=== PATIENT | female | born 1970 | race Caucasian/White ===

== ENCOUNTER 2020-04-06 05:33 | Emergency (ER) | payer OTHER, SELFPAY ==
[2020-04-06 05:40] VITALS: BP 135/72; PULSE 93; RESP 15; TEMP 36.8; O2SAT 98; BMI 36.5
--- NOTE | 2020-04-06 05:41 | ED.HA ---
HPI - Headache General Chief Complaint: Headache Stated Complaint: migraine Time Seen by Provider: 04/06/20 05:41 History of Present Illness HPI Narrative: 49-year-old woman with a history of migraine headaches presents with migraine headache. She states started approximately 3 hours prior to arrival was associated with her usual aura. Describes it as having a bit more nausea than usual and sleeping and Excedrin migraine, her usual management, is not working this time. She states she has tried triptans in the past but they frequently are not very effective for her. She also notes that she is allergic to Reglan as causes unpleasant twitching. She notes no recent fever, cough, chills, abdominal pain, diarrhea, rashes, new exposures or other findings that may have set off this current migraine. She describes no new neurologic symptoms notes slight blurred vision in the right eye where the aura is most noticeable. Related Data Allergies Allergy/AdvReac Type Severity Reaction Status Date / Time metoclopramide [From Reglan] Allergy twitchy Verified 04/06/20 05:45 Review of Systems Review of Systems Narrative: Pertinent positive and negative findings as per HPI Remainder of review of systems is otherwise unremarkable for Constitutional: Fevers, chills, weakness ENT: No sore throat, neck pain, ear pain CV: Chest pain, palpitations, dyspnea on exertion Respiratory: Cough, wheeze, dyspnea GI: Nausea, vomiting, diarrhea, change in bowel habits, black or bloody stools : Dysuria, hematuria, flank pain MS: Muscle weakness, numbness Skin: Rashes, nonhealing lesions Neuro: Syncope, dizziness, tingling Patient History Medical History Migraine (Acute) Social History Smoking Status: Never smoker Exam Narrative Exam Narrative: General: Healthy appearing, moderate distress secondary to headache. Able to give a complete and coherent history. Well-nourished well-developed HEENT: Moist mucous membranes, normal sclera with reactive pupils, Neck: supple Respiratory: Lungs are clear to auscultation, no wheezing no rales no rhonchi. Full and symmetrical air movement Cardiac: Regular rate and rhythm no murmurs no bruits Abdomen: Soft nontender good bowel tones, no flank pain Neurologic: Grossly neurologically intact with no obvious asymmetries or abnormalities Psych: Cooperative, appropriate insight and affect Initial Vital Signs Initial Vital Signs: Vital Signs Temperature 98.2 F 04/06/20 05:40 Pulse Rate 93 H 04/06/20 05:40 Respiratory Rate 15 04/06/20 05:40 Blood Pressure 135/72 04/06/20 05:40 Pulse Oximetry 98 04/06/20 05:40 Course Orders Ordered: Discontinued Medications Diphenhydramine HCl (Benadryl) 25 mg IV NOW ONE Stop: 04/06/20 05:46 Last Admin: 04/06/20 05:56 Dose: 25 mg Documented by: MICHELINE Diphenhydramine HCl (Benadryl) 25 mg IV NOW ONE Stop: 04/06/20 06:44 Last Admin: 04/06/20 06:49 Dose: 25 mg Documented by: MICHELINE Haloperidol (Haldol) 2 mg IV NOW ONE Stop: 04/06/20 06:44 Last Admin: 04/06/20 06:48 Dose: 2 mg Documented by: MICHELINE Ondansetron HCl 8 mg/ Sodium (Chloride) 54 mls @ 216 mls/hr IV NOW ONE Stop: 04/06/20 05:46 Last Admin: 04/06/20 05:56 Dose: Not Given Documented by: MICHELINE Sodium Chloride (Normal Saline 0.9%) 1,000 mls @ 1,000 mls/hr IV BOLUS ONE Stop: 04/06/20 06:44 Last Admin: 04/06/20 05:56 Dose: 1,000 mls/hr Documented by: MICHELINE Sodium Chloride (Normal Saline 0.9%) 1,000 mls @ 1,000 mls/hr IV BOLUS ONE Stop: 04/06/20 06:45 Last Admin: 04/06/20 05:56 Dose: Not Given Documented by: MICHELINE Ondansetron HCl 8 mg/ Sodium (Chloride) 54 mls @ 216 mls/hr IV NOW ONE Stop: 04/06/20 05:50 Last Admin: 04/06/20 05:57 Dose: Not Given Documented by: MICHELINE Ketorolac Tromethamine (Toradol) 15 mg IV NOW ONE Stop: 04/06/20 05:46 Last Admin: 04/06/20 05:54 Dose: 15 mg Documented by: MICHELINE Ondansetron HCl (Zofran) 8 mg IV NOW ONE Stop: 04/06/20 05:52 Last Admin: 04/06/20 05:55 Dose: 8 mg Documented by: MICHELINE Vital Signs Vital signs: Vital Signs - 8 hr 04/06/20 05:40 Temperature 98.2 F Pulse Rate 93 H Respiratory Rate 15 Blood Pressure 135/72 Pulse Oximetry 98 MDM - Headache Medical Records Attestation: I reviewed the patient's medical records. [facility] Narrative Medical decision making narrative: 49-year-old woman with a history of migraine presents with severe migraine. She states that she typically does not need to go to the hospital with these and believes last time that she needed to was approximately 3 years ago. Headache was moderately improved with saline, Zofran, Toradol, Benadryl. She was still nauseated after this so additional benadryl and IV haldol were added to the regimin. There is no evidence of infection, acute neurologic injury or intracranial bleed. She is safe for home discharge Discharge Plan Departure Patient Disposition: Home Clinical Impression: Migraine Instructions: DI for Migraine Activity Restrictions/Additional Instructions: Thank you for coming in today I am sorry that your migraine was so severe today. In the emergency room you received 1 L of saline, Toradol, Benadryl and Zofran for nausea. Then additional benadryl and haldol for continued pain and nausea. I hope that you are able to get some sleep and wake up feeling refreshed If you have a change in symptoms, numbness or tingling or dysfunction in 1 of your arms or legs, developed fevers or severe neck pain it would be very appropriate to return to the emergency room for further evaluation Referrals: Dallas Minaya MD [Primary Care Provider] -
[2020-04-06] MEDS: KETOROLAC 60 MG/2 ML VIAL 15 MG IV (05:54)
[2020-04-06] MEDS: ONDANSETRON 4 MG/2 ML INJ 8 MG IV (05:55)
[2020-04-06] MEDS: SODIUM CHLORIDE 0.9% 1,000 ML 1000 ML IV (05:56)
[2020-04-06] MEDS: diphenhydrAMINE 50 MG/ML VIAL 25 MG IV ×2 (05:56→06:49)
[2020-04-06] MEDS: HALOPERIDOL 5 MG/ML VIAL 2 MG IV (06:48)
[2020-04-06 07:26] VITALS: BP 111/58; PULSE 78; RESP 15; O2SAT 98
== END 2020-04-06 07:28 | disposition home or self-care (01) ==
PROVIDERS: Emergency Provider Emergency Medicine; PCP Internal Medicine
DX: G43.909 Migraine, unspecified, not intractable, without status migrainosus (principal)
CPT/HCPCS: 96361; 96374; 96375; 96376; 99283; 99284; J1200; J1630; J1885; J2405

== ENCOUNTER 2021-11-28 19:14 | Emergency (ER) | payer OTHER, MEDICAID, SELFPAY ==
[2021-11-28 19:17] VITALS: BP 128/71; PULSE 102; RESP 16; TEMP 36.6; O2SAT 100; BMI 39.9
--- NOTE | 2021-11-28 19:45 | PC.NURSE ---
Denies kidney or issues
--- NOTE | 2021-11-28 21:07 | ED.BACK ---
HPI - Back Pain/Injury General Chief Complaint: Back Pain/Injury Stated Complaint: THREW BACK OUT Time Seen by Provider: 11/28/21 20:53 Source: patient History of Present Illness HPI Narrative: Patient is a 51-year-old female who presents with back and buttock pain. It started a few days ago but has progressively gotten worse. She says it is in her right buttock she has strip shooting pain down the back of her leg. She cannot find a comfortable position. She has been taking 800 mg of ibuprofen every 4 hours. She is on Suboxone for chronic neck pain. She denies any painful or frequent urination no flank pain. She denies any fever. Related Data Previous Rx's Medication Instructions Recorded cyclobenzaprine 5 mg tablet 5 mg PO TID PRN #10 tab 11/28/21 Allergies Allergy/AdvReac Type Severity Reaction Status Date / Time metoclopramide [From Reglan] Allergy twitchy Verified 11/28/21 19:20 Review of Systems Review of Systems Narrative: GENERAL: Denies chills, fatigue, malaise, fever, sweats, travel HEENT: Denies sinus pain, ear pain, sore throat, difficulty swallowing, neck pain RESPIRATORY: Denies dyspnea, cough, wheezing, hemoptysis, sputum. CARDIOVASCULAR: Denies chest pain, palpitations, orthopnea, edema GASTROINTESTINAL: Denies nausea, vomiting, abdominal pain, diarrhea, constipation, melena. : Denies dysuria, frequency, incontinence, hematuria, urinary retention, flank pain. MUSCULOSKELETAL: See HPI SKIN: No rash, no erythema, no pruritus NEUROLOGIC: Denies weakness, dizziness, headache, numbness, change in speech, confusion PSYCHIATRIC: No concerning psychosocial issues. 12 point review of systems is negative except for those stated above and HPI Patient History Medical History Migraine Social History Smoking Status: Never smoker Smoking Status: Never smoker alcohol intake frequency: 0-2 drinks per day Substance Use Type: does not use Exam Initial Vital Signs Initial Vital Signs: Vital Signs Temperature 97.8 F 11/28/21 19:17 Pulse Rate 102 H 11/28/21 19:17 Respiratory Rate 16 11/28/21 19:17 Blood Pressure 128/71 11/28/21 19:17 Pulse Oximetry 100 11/28/21 19:17 GENERAL: Alert 51-year-old female appears younger in [no acute] distress. HEENT: Head atraumatic,EOMI, pupils reactive, face symmetric, [moist] mucous membranes CARDIOVASCULAR: Peripheral pulses intact RESPIRATORY: Speaks in full sentences without difficulty no cyanosis ABDOMEN: Soft, nontender. Normoactive bowel sounds all 4 quadrants. No guarding or rebound. BACK: No vertebral tenderness no step-offs she is tender in her right buttock which is reproducible with palpation : No CVA tenderness EXTREMITIES: Normal range of motion, no clubbing or edema. Neurovascularly intact NEUROLOGICAL: Alert and oriented x4.Normal gait and speech. Sensation in lower extremities intact anyd equal SKIN: Warm, dry, no laceration, no petechiae, no rashes or lesions. Course Orders Ordered: Discontinued Medications Cyclobenzaprine HCl (Cyclobenzaprine 10 Mg Prepack) 1 bottle MISC SEEINSTR ONE Stop: 11/28/21 21:15 Last Admin: 11/28/21 21:27 Dose: 1 bottle Documented by: TROY Cyclobenzaprine HCl (Cyclobenzaprine 10 Mg Tablet) 10 mg PO NOW ONE Stop: 11/28/21 21:15 Last Admin: 11/28/21 21:27 Dose: 10 mg Documented by: TROY Vital Signs Vital signs: Vital Signs - 8 hr 11/28/21 19:17 Temperature 97.8 F Pulse Rate 102 H Respiratory Rate 16 Blood Pressure 128/71 Pulse Oximetry 100 MDM - Back Pain/Injury MDM Narrative Medical decision making narrative: At this time patient is having sinus symptoms consistent with sciatic pain. She has had taken large amount of NSAIDs are ready. She is already taking Suboxone obvious unlikely to be affective. She says she has had Flexeril in the past and is willing to have some of that. Discharge Plan Departure Patient Disposition: Home Clinical Impression: Acute back pain with sciatica Instructions: DI for Back Pain With Sciatica Activity Restrictions/Additional Instructions: *You have been diagnosed with back pain with sciatica *What to do: At this time narcotic medications will not work because of your Suboxone. Try light stretching heating pad. *Continue to take medications as directed Flexeril 5-10 mg every 8 hours if needed for muscle spasm this can cause drowsiness Ibuprofen 800 mg every 8 hours for [id number] pain Tylenol 1000 mg every 6 hours if needed for [id number] pain *Follow up with your primary care provider in 2-3 days or call [phone] *Return to ER if you should have increasing pain weakness fever or any new, worsening or concerning symptoms Prescriptions: New cyclobenzaprine 5 mg tablet 5 mg PO TID PRN (Reason: muscle spasm) Qty: 10 0RF Referrals: Dallas Minaya MD [Primary Care Provider] -
[2021-11-28] MEDS: CYCLOBENZAPRINE 10 MG TABLET PO (21:27)
[2021-11-28] MEDS: CYCLOBENZAPRINE 10 MG PREPACK 1 BOTTLE MISC (21:27)
== END 2021-11-28 21:35 | disposition home or self-care (01) ==
PROVIDERS: Emergency Provider Emergency Medicine; PCP Internal Medicine
DX: M54.41 Lumbago with sciatica, right side (principal)
CPT/HCPCS: 99283